=== PATIENT | male | born 1980 | race Caucasian/White ===

== ENCOUNTER 2022-11-15 00:24 | Emergency (ER) | payer OTHER ==
[~2022-11-15] VITALS: Ht 175.3 cm; Wt 99.8 kg
[~2022-11-15 00:24] MED LIST: POLY119PG PO; SURFAK240 M1 PO; ULTRACET PO
== END 2022-11-15 07:50 | disposition home or self-care (01) ==
LOC: ER 00:24
DX: R10.84 Generalized abdominal pain (principal); K76.0 Fatty (change of) liver, not elsewhere classified

== ENCOUNTER 2024-05-08 17:26 | Emergency (ER) | payer OTHER ==
[~2024-05-08] VITALS: Ht 175.3 cm; Wt 95.3 kg
[2024-05-08] MEDS ORDERED: FAMOtidine 10 MG/ML (4ML VIAL) IV ONE (18:00)
[2024-05-08] MEDS ORDERED: KETOROLAC TROMETHAMINE 60 MG VIAL IM ONE ×2 (18:00→18:13)
[2024-05-08] MEDS ORDERED: 0.9 % SODIUM CHLORIDE 1,000 ML IV ONE (18:00)
[2024-05-08] MEDS ORDERED: FAMOTIDINE/PF 20 MG/2 ML VIAL ONE (18:13)
[2024-05-08 18:29] LABS: HEMATOCRIT 45.9 % (39.0-48.0); HEMOGLOBIN 15.8 g/dL (13-16.00); MEAN CELL VOLUME 86.7 fL (80.0-100.00); MEAN CORPUSCULAR HEMOGLOBIN 29.9 pg (27.00-32.0); MEAN CORPUSCULAR HGB CONC 34.5 g/dl (32.0-36.0); PLATELET COUNT 272 K/uL (150-450)
[2024-05-08 18:37] LABS: PH,URINE 6.5 (5.0-8.0); URINE APPEARANCE Clear; URINE BILIRRUBIN Negative (NEGATIVE); URINE BLOOD Negative; URINE COLOR Yellow; URINE GLUCOSE Negative (NEGATIVE); URINE KETONE Trace (NEGATIVE); URINE LEUKOCYTE Negative; URINE NITRATE Negative; URINE PROTEIN Negative (NEGATIVE)
[2024-05-08 18:39] LABS: URINE BACTERIA 22.6 uL (0.0-1933); URINE RBC 5.4 uL (0.0-20.8); URINE WBC 2.9 uL (0.0-23.2)
[2024-05-08 18:49] LABS: ALBUMIN 3.9 gm/dL (3.4-5.0); BILIRUBIN TOTAL 0.44 mg/dL (0.3-1.2); CREATININE SERUM 1.42 mg/dL (0.70-1.30); GFR 53.91; GLOBULINA 3.6 G/DL (2.4-3.5); POTASSIUM 3.89 mEq/L (3.5-5.1); TOTAL PROTEIN 7.5 gm/dL (6.4-8.2)
[2024-05-08] MEDS ORDERED: PEPCID AC20 MG PO (23:51)
== END 2024-05-09 | disposition home or self-care (01) ==
LOC: ER 17:28
PROVIDERS: General Practice
DX: K29.70 Gastritis, unspecified, without bleeding (principal); R10.9 Unspecified abdominal pain
CPT/HCPCS: 36415; 74177; Q9965